=== PATIENT | male | born 1975 | race Caucasian/White ===

== ENCOUNTER 2019-10-25 14:05 | Emergency (ER) | payer MEDICAID, SELFPAY ==
[2019-10-25 14:07] VITALS: BP 151/80; PULSE 93; RESP 16; TEMP 36.6; O2SAT 100; BMI 26.6
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
[2019-10-25] MEDS: Ketorolac 15 MG/ML Vial IV (15:04)
== END 2019-10-25 16:16 | disposition home or self-care (01) ==
PROVIDERS: Emergency Provider Emergency Medicine
DX: M25.551 Pain in right hip (principal); L65.9 Nonscarring hair loss, unspecified; F17.200 Nicotine dependence, unspecified, uncomplicated; Z88.0 Allergy status to penicillin; Z88.6 Allergy status to analgesic agent
CPT/HCPCS: 96374; 99284; A4216

== ENCOUNTER 2020-01-11 09:37 | Emergency (ER) | payer MEDICAID, SELFPAY ==
[2020-01-11 09:38] VITALS: BP 159/97; PULSE 107; RESP 18; TEMP 36.3; O2SAT 98; BMI 26.1
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
[2020-01-11] MEDS: Clindamycin HCl 150 MG Capsule 300 MG PO (10:26)
[2020-01-11 11:03] VITALS: RESP 16
== END 2020-01-11 11:05 | disposition home or self-care (01) ==
LOC: ED 10:48
PROVIDERS: Emergency Provider Emergency Medicine
DX: L02.811 Cutaneous abscess of head [any part, except face] (principal); F17.200 Nicotine dependence, unspecified, uncomplicated; Z88.0 Allergy status to penicillin; Z88.6 Allergy status to analgesic agent
CPT/HCPCS: 10060; 99283

== ENCOUNTER 2020-02-07 15:56 | Emergency (ER) | payer MEDICAID, SELFPAY ==
[2020-02-07 15:58] VITALS: BP 151/97; PULSE 91; RESP 16; TEMP 37.1; O2SAT 100; BMI 25.2
--- NOTE | 2020-02-07 16:29 | ED.VISSUMM ---
- ER Visit Summary Date of Service: 02/07/20 Chief Complaint: [Withdrawal from opiates] History of Present Illness: The patient is a 44 M [presents to the emergency department stating that he is withdrawing from opiates. He last used fentanyl yesterday. Patient states that he started taking Suboxone this morning and feels like it threw him into withdrawal. Patient was having nausea and vomiting. Patient was having hot and cold spells. Patient feels shaky. 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 Patient feels better than he did this morning. He does not want to be admitted or go through an inpatient program. [facility] the [facility].] Physical Examination: [HEENT-PERRLA, EOMI. Cranial nerves II through XII grossly intact. TMs clear. Mucous membranes moist. No adenopathy. Cardiovascular-regular rate and rhythm without murmur or ectopy Lungs-clear to auscultation, chest wall stable without crepitus or subcu emphysema Abdomen-normoactive bowel sounds, soft, nontender, no rebound or rigidity, no peritoneal signs. Extremities-intact ?4, normal range of motion, normal pulses, atraumatic] Test Results: [None indicated] Emergency Department Course and Treatment: [I attempted to contact the patient's traffic division commanding officer and had not heard back. Patient left the department prior to treatment completion.] Treatment Plan: [] Disposition: [Left prior to treatment completion] Impression: [Opiate withdrawal] This note was generated with [employer] dictation software. It may contain incorrect words, spelling, and punctuation that were not noted in review of the chart prior to signing ED Disposition - Plan for ED Patient: Referrals: Care Physician,No Primary [Primary Care Provider] -
== END 2020-02-07 17:15 | disposition home or self-care (01) ==
LOC: ED 17:06
PROVIDERS: Emergency Provider Emergency Medicine
DX: F11.23 Opioid dependence with withdrawal (principal); R11.2 Nausea with vomiting, unspecified; I10 Essential (primary) hypertension; Z72.0 Tobacco use; Z86.19 Personal history of other infectious and parasitic diseases
CPT/HCPCS: 99282

== ENCOUNTER 2020-05-24 12:26 | Emergency (ER) | payer MEDICAID, SELFPAY ==
[2020-05-24 12:27] VITALS: BP 134/80; PULSE 102; PULSE 99; RESP 12; RESP 13; TEMP 37.1; O2SAT 95; BMI 29.2
--- NOTE | 2020-05-24 12:36 | RAD_ITS ---
STUDY: X-RAY CHEST REASON FOR EXAM: Male, 44 years old. SEVERE CHEST PAIN. PT SMELLS HIGHLY OF GASOLINE TECHNIQUE: Frontal view of the chest COMPARISON: None. FINDINGS: The lungs are clear and expanded. There is no demonstrated pleural abnormality. Normal size heart. Normal mediastinum and dejah. Normal visualized pulmonary arteries. Normal visualized aortic arch and descending thoracic aorta. Normal visualized thoracic spine. Normal visualized ribs, clavicles, and shoulders. There is no demonstrated abnormality of the visualized soft tissue structures of the upper abdomen. RAD/Chest 1 View (Portable) IMPRESSION: Normal x-ray examination of the chest. Electronically Signed: Lottie David, at 13:29 EST Tel , Service support ,
--- NOTE | 2020-05-24 12:36 | EKG12_ITS ---
Test Reason : CP Blood Pressure : / mmHG Vent. Rate : 099 BPM Atrial Rate : 099 BPM P-R Int : 134 ms QRS Dur : 084 ms QT Int : 354 ms P-R-T Axes : 049 050 026 degrees QTc Int : 454 ms Normal sinus rhythm Normal ECG Confirmed by EUGENE CALDWELL, DARRYL ([id number]), supervising editor news reel LUPE GUARDADO ([id number]) on 05/26/2020 10:24:09 AM Referred By: EDSON Confirmed By:DARRYL KNIGHT MD
[2020-05-24 12:41] VITALS: O2SAT 95
--- NOTE | 2020-05-24 12:47 | ED.RN ---
PT HAS HEAVY SCENT OF GASOLINE, PT OCCASIONALLY SLURRING HIS SPEECH AND SAYING UNINTELLIGIBLE WORDS. PT IS UPSET THAT HIS SIGNIFICANT OTHER CAN NOT BE IN THE ROOM WITH HIM. PT INFORMED OF HOSPITAL POLICY OFF NO VISITORS IN THE ED.
[2020-05-24 12:48] LABS: Absolute Lymphocyte Count 2.44 X10^3/uL (0.83-4.51); Absolute Neutrophil Count 7.3 X10^3/uL (2.0-7.7); Basophil# 0.03 X10^3/uL; Basophil% 0.3 % (0-1); Eosinophil# 0.06 X10^3/uL; Eosinophils% 0.5 % (0-5); Hematocrit 39.5 % (40-54); Hemoglobin 13.1 g/dL (13.0-16.5); Lymphocyte # 2.44 X10^3/ul (4.0); Lymphocyte % 21.8 % (19-41); Mean Corp Hgb Conc 33.2 g/dL (32-36); Mean Corpuscular Hgb 30.3 pg (27.0-32.0); Mean Corpuscular Volume 91.4 fL (80-94); Mean Platelet Vol. 9.6 fl (6.2-12.0); Monocyte# 1.35 X10^3/uL; NRBC Flagged by Analyzer 0 % (0-5); Neutrophil % 65.1 % (47-70); Platelet Count 291 K/mm3 (150-450); RBC Distribution Width CV 13.2 % (11.6-14.6); RBC Distribution Width SD 43.8 fl (35.1-43.9); Red Blood Count 4.32 M/mm3 (4.6-6.2); White Blood Count 11.2 K/mm3 (4.4-11.0)
[2020-05-24 12:58] LABS: International Normalized Ratio 1.1; Prothrombin Time (Protime)PT. 13.5 SECONDS (11.7-14.9)
[2020-05-24] MEDS: Aspirin 81 MG TAB.CHEW 324 MG PO (13:04)
[2020-05-24 13:05] LABS: Anion Gap 8 (5-15); BUN 21 mg/dL (7-18); BUN/Creat Ratio 17.5 RATIO (10-20); Calcium,Total 8.6 mg/dL (8.5-10.1); Chloride 104 mmol/L (98-107); EST Glomerular Filtration Rate 70 mL/min (>60); Est Glom Filt Rate - Afr Amer 84 mL/min (>60); Estimated Creatinine Clearance 81.11 ml/min; Glucose 73 mg/dL (74-106); Sodium Level 139 mmol/L (136-145)
--- NOTE | 2020-05-24 13:09 | ED.DCSUM_ITS ---
- ER Visit Summary Date of Service: 05/24/20 Chief Complaint: Chest pain History of Present Illness: The patient is a 44 M who presents with chest pain that began today. Patient states it is burning pain. Patient states it is over his left upper chest. Patient states he was playing with his children and working on his vehicle today when the pain began. Patient states nothing makes it better or worse. Patient admits to some shortness of breath. Patient also states it feels like his heart is racing. Patient admits to nausea and vomiting. Patient also admits to a sore throat. Patient denies any fevers or chills. Physical Examination: Vital signs are stable. Patient is afebrile. Patient is in no acute distress. Oral mucosa is pink and moist. Neck is supple. Trachea is midline. There is no JVD. Heart was regular rate and rhythm. Lungs are clear and equal bilaterally. Abdomen is soft. Bowel sounds are normal. There is no tenderness. Cranial nerves II through XII are intact. There are no focal motor or sensory deficits noted. Extremities are intact. There is no calf tenderness or edema. Skin is warm and dry. Patient does have an odor of gasoline to him. Test Results: EKG was obtained. On my interpretation, there is a normal sinus rhythm with a rate of 99. There are no acute ST or T wave changes. Portable 1 view chest x-ray was obtained. On my interpretation, lung ray are clear. There is normal cardiac silhouette. Bony thorax is normal. There is no acute process noted. Radiologist also interpreted the x-ray and agrees. CBC shows a mild leukocytosis of 11.2. Basic metabolic profile was obtained and was esse ntially within normal limits. Troponin was slightly elevated at 0.09. Emergency Department Course and Treatment: Patient was given aspirin and ordered sublingual nitroglycerin. Patient did not want to stay for any further evaluation. Patient states he needs to go home to his children. Patient was advised that he could be having a myocardial infarction and he needed to stay for further evaluation. Patient does not want to stay. Patient was advised of the risks of signing out AGAINST MEDICAL ADVICE including . Patient will sign out AGAINST MEDICAL ADVICE. Patient understood and was agreeable with the plan. All questions were answered. Disposition: Discharge AGAINST MEDICAL ADVICE Impression: 1. Chest pain This note was generated with [employer] software. It may contain incorrect words, spelling, and punctuation that were not noted in review of the chart prior to signing ED Disposition - Plan for ED Patient: Disposition: Against Medical Advice Diagnosis: Chest pain Instructions: ED Chest Pain, Uncertain Cause Referrals: Care Physician,No Primary [Primary Care Provider] -
[2020-05-24 13:12] VITALS: BP 128/85; PULSE 101; RESP 25; O2SAT 96
--- NOTE | 2020-05-24 13:16 | ED.RN ---
pt calls out asking for the paper to sign to get out of here. Upon entering patients room for assessment of the situation patient had taken himself off the monitor and started to take out his IV. This RN finished removing IV and let Dr Vo now that patient is requesting to leave AMA. Pt signed papers and states understanding of leaving against medical advice, denies any questions. patient ambulates self out of department.
== END 2020-05-24 13:18 | disposition left against medical advice (07) ==
LOC: ED 13:17
PROVIDERS: Emergency Provider Emergency Medicine
DX: R07.9 Chest pain, unspecified (principal); Z53.29 Procedure and treatment not carried out because of patient's decision for other reasons; R11.2 Nausea with vomiting, unspecified; J02.9 Acute pharyngitis, unspecified; R06.02 Shortness of breath; Z72.0 Tobacco use
CPT/HCPCS: 71045; 80048; 84484; 85025; 85610; 93005; 99284; A4216

== ENCOUNTER 2020-08-09 09:21 | Emergency (ER) | payer MEDICAID, SELFPAY ==
[2020-08-09 09:22] VITALS: BP 163/99; PULSE 109; RESP 9; TEMP 36.9; O2SAT 98; BMI 27.6
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
[2020-08-09 09:32] VITALS: PULSE 91
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
[2020-08-09 09:51] LABS: Absolute Lymphocyte Count 1.68 X10^3/uL (0.83-4.51); Absolute Neutrophil Count 5.2 X10^3/uL (2.0-7.7); Basophil# 0.03 X10^3/uL; Basophil% 0.4 % (0-1); Eosinophil# 0.09 X10^3/uL; Eosinophils% 1.2 % (0-5); Hematocrit 43.8 % (40-54); Hemoglobin 14.3 g/dL (13.0-16.5); Lymphocyte # 1.68 X10^3/ul (4.0); Lymphocyte % 21.7 % (19-41); Mean Corp Hgb Conc 32.6 g/dL (32-36); Mean Corpuscular Hgb 30.6 pg (27.0-32.0); Mean Corpuscular Volume 93.6 fL (80-94); Mean Platelet Vol. 9.7 fl (6.2-12.0); Monocyte# 0.72 X10^3/uL; Monocyte% 9.3 % (0-10); NRBC Flagged by Analyzer 0 % (0-5); Neutrophil # 5.19 X10^3/uL (2.7-7.7); Neutrophil % 66.9 % (47-70); Platelet Count 296 K/mm3 (150-450); RBC Distribution Width CV 12.3 % (11.6-14.6); RBC Distribution Width SD 42.4 fl (35.1-43.9); Red Blood Count 4.68 M/mm3 (4.6-6.2); White Blood Count 7.8 K/mm3 (4.4-11.0)
[2020-08-09 10:07] LABS: AST(SGOT) 85 U/L (15-37); Alanine Aminotransfer ALT/SGPT 184 U/L (16-61); Albumin, Serum 3.7 g/dL (3.2-5.0); Alkaline Phosphatase 109 U/L (45-117); Anion Gap 5 (5-15); BUN 15 mg/dL (7-18); BUN/Creat Ratio 14.3 RATIO (10-20); Bilirubin, Direct 0.09 mg/dL (0.00-0.30); Calcium,Total 8.9 mg/dL (8.5-10.1); Chloride 108 mmol/L (98-107); Creatinine, Serum 1.05 mg/dL (0.70-1.30); EST Glomerular Filtration Rate 81 mL/min (>60); Est Glom Filt Rate - Afr Amer 98 mL/min (>60); Estimated Creatinine Clearance 104.38 ml/min; Globulin 3.9 g/dL (2.2-4.2); Glucose 106 mg/dL (74-106); Potassium 3.9 mmol/L (3.5-5.1); Protein, Total 7.6 g/dL (6.4-8.2); Sodium Level 139 mmol/L (136-145)
[2020-08-09 10:17] LABS: Alcohol, Blood (Medical)-Serum < 3.0 mg/dL
[2020-08-09 10:26] VITALS: BP 168/104; PULSE 101; RESP 21
[2020-08-09 10:26] LABS: Prothrombin Time (Protime)PT. 12.9 SECONDS (11.7-14.9)
[2020-08-09 10:27] LABS: Partial Thromboplast Time 27.7 Seconds (24.1-36.2)
[2020-08-09 10:39] LABS: Bacteria 0 SEEN /hpf (None Seen); Mucous, Urine 0 SEEN /hpf (<or=2+); Squamous Epithelial Cells - UA 0 SEEN /hpf (0-5)
[2020-08-09 10:49] LABS: Color, Urine Yellow (Yellow); Glucose, Dipstick Normal (Normal); Ketone-Dipstick 5 mg/dl (Negative); Leukocyte Esterase-Dipstick 25 /ul (Negative); Nitrite-Dipstick Negative (Negative); Occult Blood-Urine 250 /ul (Negative); Protein-Dipstick 100 mg/dl (Negative); Urine Clarity Clear (Clear); Urine Urobilinogen 4 mg/dl (Normal)
[2020-08-09 10:51] LABS: Urine Bilirubin Dipstick 1 mg/dL (Negative)
[2020-08-09 10:57] LABS: Red Blood Cells-Urine 50-100 SEEN /hpf (0-5); White Blood Cells 5-10 SEEN /hpf (0-5)
[2020-08-09 11:26] LABS: Amphetamine Urine VISTA POSITIVE (<1000 ng/mL); Barbiturate Urine VISTA NEGATIVE (< 200 ng/mL); Benzodiazepine Urine VISTA NEGATIVE (< 200 ng/mL); Cocaine Urine VISTA NEGATIVE (< 300 ng/mL); Ecstacy Urine VISTA POSITIVE (< 500 ng/mL); Methadone Urine VISTA NEGATIVE (< 300 ng/mL); PCP Urine VISTA NEGATIVE (< 25 ng/mL); THC Urine VISTA POSITIVE (< 50 ng/mL); Vista UDS pH Range 6
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
[2020-08-09] MEDS: Ketorolac 30 MG/ML Syringe IV (11:58)
[2020-08-09] MEDS: Diphth,Pertuss(Acell),Tet Vac 0.5 ML Vial IM (11:59)
[2020-08-09 12:12] VITALS: BP 140/95; PULSE 101; RESP 15; O2SAT 98
--- NOTE | 2020-08-26 08:07 | ED.RN ---
THIS NURSE SPOKE TO THE [facility] WHO CALLED TO INQUIRE IF A KNEE X-RAY WAS COMPLETED FOR THE PT.
== END 2020-08-09 12:23 ==
PROVIDERS: Emergency Provider Emergency Medicine
DX: S22.41XA Multiple fractures of ribs, right side, initial encounter for closed fracture (principal); S16.1XXA Strain of muscle, fascia and tendon at neck level, initial encounter; S09.90XA Unspecified injury of head, initial encounter; S60.512A Abrasion of left hand, initial encounter; S60.511A Abrasion of right hand, initial encounter; R10.9 Unspecified abdominal pain; Z23 Encounter for immunization; V53.5XXA Driver of pick-up truck or van injured in collision with car, pick-up truck or van in traffic accident, initial encounter; Y93.89 Activity, other specified; Y92.9 Unspecified place or not applicable; Y99.9 Unspecified external cause status; M16.11 Unilateral primary osteoarthritis, right hip; R31.9 Hematuria, unspecified; M54.9 Dorsalgia, unspecified; G89.29 Other chronic pain; F17.200 Nicotine dependence, unspecified, uncomplicated
CPT/HCPCS: 70450; 71260; 72125; 73552; 73590; 74177; 80048; 80076; 80307; 81001; 82077; 85025; 85610; 85730; 90715; 96374; 99285; Q9967; A4216